=== PATIENT | male | born 1965 | race Two or more races ===

== ENCOUNTER 2024-03-10 06:16 | Emergency (ER) | payer MEDICAID, SELFPAY ==
[2024-03-10 06:16] VITALS: BMI 23.1
[2024-03-10 06:52] VITALS: BP 130/66; PULSE 70; RESP 16; TEMP 37.1; O2SAT 98
--- NOTE | 2024-03-10 07:21 | PD.EDRME ---
Rapid Medical Screening Exam RME Arrival date/time: 03/10/24 06:16 Chief Complaint: GI Bleed Time Seen by Provider: 03/10/24 07:17 Vital signs: Vital Signs Temperature 98.7 F 03/10/24 06:52 Pulse Rate 70 03/10/24 06:52 Respiratory Rate 16 03/10/24 06:52 Blood Pressure 130/66 03/10/24 06:52 Pulse Oximetry (%) 98 03/10/24 06:52 Oxygen Delivery Method Room Air 03/10/24 06:52 RME Narrative: 59-year-old patient presents emergency department with complaint of rectal bleeding. Patient states over the past 4 days he has been having p.o. blood when he defecates. He denies possibility of hemorrhoids he denies tobacco use. He denies abdominal pain.
--- NOTE | 2024-03-10 07:22 | XR_ITS ---
Examination: CT abdomen with intravenous contrast CT pelvis with intravenous contrast 2-D coronal reconstructions 2-D sagittal reconstructions Date and time of exam:March 10, 2024 1426 hrs. Indications: Onset rectal bleeding beginning 4 days ago. CTDI: vol (mGy) 15.9 DLP: (mGycm) 634 Technique: Multiple axial sections of the abdomen and pelvis have been obtained. 64 slice high-resolution scanner used. 3 mm axial sections have been obtained, post intravenous injection 60 cc [id number] 2-D sagittal, coronal reconstructions obtained. Low dose protocols were performed. One or more of the following dose reduction techniques were used; automated exposure control, adjustment of the mA and/or KV according to patient size, use of iterative reconstruction technique. Findings: Severe diffuse fatty infiltration throughout the liver No focal liver lesions No gallstones No splenic or pancreatic mass No renal or ureteral calculi, no hydronephrosis Aorta normal size No bowel obstruction Normal appendix No nonspecific colitis or enteritis Urinary bladder intact Mild prostatomegaly No abnormal contrast extravasation in the gastrointestinal tract Impression: No abnormal contrast extravasation in the gastrointestinal tract Consider nuclear medicine radioisotope gastrointestinal bleeding study follow-up or CTA abdomen pelvis post intravenous contrast follow-up
[2024-03-10 08:02] LABS: Collection Type, Urine Clean Catch
[2024-03-10 08:09] LABS: Bilirubin,Urine Negative (Negative); Blood,Urine Negative (Negative); Clarity,Urine Clear (Clear/Hazy); Color,Urine Lt-Yellow (Lt Yel-Yel); Culture Indicated,Urine Not Indicated; Glucose, Urine Negative (Negative); Ketones,Urine Negative (Negative); Leukocyte Esterase,Urine Negative (Negative); Nitrite,Urine Negative (Negative); Protein,Urine Negative (Neg - Trace); RBC,Urine 2 /hpf (0-3); Specific Gravity,Urine 1.017 (1.001-1.035); Squamous Epithelial Cell,Urine < 1 /hpf (0-5); Urobilinogen,Urine Negative mg/dL (0.0-1.0); WBC,Urine < 1 /hpf (0-5)
[2024-03-10 08:14] LABS: Basophils % (Auto) 0 % (0-2.5); Eosinophils # (Auto) 0.1 Thou/mm3 (0.0-0.5); Eosinophils % (Auto) 2 % (0-10); Hematocrit 35.4 % (41.0-53.0); Hemoglobin 12.1 g/dL (13.5-16.0); Immature Granulocytes % (Auto) 0 % (0-0); Immature Granulocytes Auto 0.01 Thou/mm3 (0.00-0.00); Lymphocytes # (Auto) 1.6 Thou/mm3 (1.0-4.8); Lymphocytes % (Auto) 23 % (10-50); Mean Corpuscular HGB Conc 34.2 g/dl (31.0-37.0); Mean Corpuscular Hemoglobin 28.1 pg (25.0-35.0); Mean Corpuscular Volume 82 fL (80-100); Monocytes # (Auto) 0.7 Thou/mm3 (0.0-0.8); Monocytes % (Auto) 10 % (0-12); Neutrophils # (Auto) 4.4 Thou/mm3 (1.8-7.7); Neutrophils % (Auto) 65 % (37-80); Nucleated Red Blood Cell % 0 /100 WBC (0); Platelet Count 162 Thou/mm3 (140-440); RDW Standard Deviation 42.2 fL (35.1-43.9); White Blood Count 6.9 Thou/mm3 (3.8-10.6)
[2024-03-10 08:16] LABS: Alanine Aminotransferase 156 U/L (10-49); Albumin, Serum 4.6 gm/dL (3.5-5.0); Albumin/Globulin Ratio 1.8 (1.2-2.2); Alkaline Phosphatase 98 U/L (46-116); Anion Gap 7 (7-16); Aspartate Amino Transferase 106 U/L (0-34); BUN/Creatinine Ratio 22 Ratio (12-20); Bilirubin,Total 0.9 mg/dL (0.3-1.2); Blood Urea Nitrogen 22 mg/dL (9-23); Calcium 8.9 mg/dL (8.3-10.6); Calcium (Corrected) 8.9 mg/dL (8.5-10.1); Carbon Dioxide 27.6 mMol/L (20.0-31.0); Chloride 105 mMol/L (98-107); Globulin 2.5 gm/dL (2.3-3.5); Glucose 113 mg/dL (74-106); Lipase 36 U/L (12-53); Osmolality,Calculated 283 (275-295); Potassium 4.3 mMol/L (3.4-5.1); Sodium 140 mMol/L (136-145); Total Protein 7.1 gm/dL (5.7-8.2); eGFR > 60 See Note
--- NOTE | 2024-03-10 15:33 | PRELIM_ITS ---
CT scan of the abdomen and pelvis with intravenous contrast (axial sections with sagittal and coronal reformats) March 10, 2024 1426 hoursClinical History: Rectal bleed.Comparison: None.Findings:The l leno bases are clear.Fatty infiltration of the liver is noted. A right renal cyst is noted. The gallbl adder, pancreas, spleen, left kidney and adrenals are unremarkable.The appendix is within normal limi ts (images [id number]). No evidence of bowel obstruction. No contrast extravasation in the stomach, small or large bowel loops to suggest active gastrointestinal hemorrhage at the time of examination. The urinary bladder is unremarkable. There is no free fluid or free air. The aorta is unremarkable. Mild degenerative changes are identified in the spine. Impression:No evidence of acute intra-abdomin al or pelvic pathology.No contrast extravasation in the stomach, small or large bowel loops to sugges t active gastrointestinal hemorrhage at the time of examination. Report Electronically Signed By: Joseph Wilson 03/10/2024 3:33:26 PM [EST]
--- NOTE | 2024-03-10 17:19 | PD.EDGIBLD ---
ED GI Bleed RME/HPI General Chief complaint: GI Bleed Stated complaint: BLOOD IN STOOL X 4 DAYS Time Seen by Provider: 03/10/24 07:17 Arrival date/time: 03/10/24 06:16 This is a 59-year-old male that comes in with complaints of rectal bleeding that started approximately 3 to 4 days ago. Patient states that when he has a bowel movement it is bright red blood. Patient reports that he feels like he has something outside his anus. Patient denies any other symptoms. Patient denies fever, nausea, vomiting, diarrhea. Patient denies past medical history. RME / HPI RME / HPI Narrative: 59-year-old patient presents emergency department with complaint of rectal bleeding. Patient states over the past 4 days he has been having p.o. blood when he defecates. He denies possibility of hemorrhoids he denies tobacco use. He denies abdominal pain. Related Data Previous Rx's ?Medication ?Instructions ?Recorded gabapentin 300 mg capsule 300 mg PO BID PRN pain #20 caps 12/09/22 ibuprofen 600 mg tablet 600 mg PO TID #20 tabs 04/08/23 hydrocortisone acetate 25 mg 25 mg MN BID #12 ea 03/10/24 rectal suppository (Anusol-HC) Allergies Allergy/AdvReac Type Severity Reaction Status Date / Time No Known Allergies Allergy Verified 03/10/24 06:20 Review of Systems Review of Systems Systems Reviewed: All systems reviewed, normal except as documented Past Medical History Surgical History OTHER SURGICAL HX: Neck surgery (work related) Social History SMOKING STATUS: Never smoker SUBSTANCE USE: does not use ALCOHOL: Never Travel History EBOLA RISK: No ED Exam General General appearance: Present alert and in no apparent distress Head Head exam: Present atraumatic Eye Eye exam: Present normal appearance, PERRL and EOMI ENT ENT exam: Present normal exam, normal oropharynx and mucous membranes moist Neck Neck exam: Present normal inspection, full ROM and trachea midline Chest Chest inspection: Present normal inspection and symmetric chest wall rise Respiratory Respiratory exam: Present normal lung sounds bilaterally Cardiovascular Cardiovascular exam: Present regular rate, normal rhythm and normal heart sounds Abdominal Exam Abdominal exam: Present soft Rectal Exam Rectal exam: Present normal rectal tone, hemorrhoids and other (guiac stool neg) Extremities Exam Extremities exam: Present normal inspection and full ROM Back Exam Back exam: Present normal inspection and full ROM Neurological Exam Neurological exam: Present alert, oriented X3 and CN II-XII intact Psychiatric Psychiatric exam: Present normal affect and normal mood Skin Skin exam: Present warm, dry, intact and normal color Course Quality Measures none Orders Category Date Time Status CT Screening NOW Care 03/10/24 07:[address] abdomen pelvis w con Stat Exams 03/10/24 07:22 Completed CBC Stat Lab 03/10/24 17:54 Completed CBC [CBC] Stat Lab 03/10/24 07:35 Completed CMP [Comprehensive Metabolic Panel] Stat Lab 03/10/24 07:35 Completed Lipase Stat Lab 03/10/24 07:35 Completed Urinalysis, C/S if Indicated Stat Lab 03/10/24 07:59 Completed Vital Signs Vital signs: Vital Signs Temperature 98.7 F 03/10/24 06:52 Pulse Rate 70 03/10/24 06:52 Respiratory Rate 16 03/10/24 06:52 Blood Pressure 130/66 03/10/24 06:52 Pulse Oximetry (%) 98 03/10/24 06:52 Oxygen Delivery Method Room Air 03/10/24 06:52 GI Bleed MDM Narrative MDM Narrative:: Spoke to patient at length. Patient has already been seeing primary provider for this problem. Patient does have hemorrhoid. It does not appear to be bleeding at this time. Upon rectal exam no blood on guaiac. Patient's initial CBC was 12.1 repeat was 11.0. Patient has not had any more bloody stools since he has been here. BNP shows slight elevation in AST and ALT. Urine negative I urged patient to come back to the emergency room if his symptoms change or worsen. Patient already has a follow-up appointment with his primary provider next week. Patient data External records reviewed:: [facility] previous records Clinical information provided by:: none Social determinants that could affect healthcare access:: none Patient has the following chronic illnesses:: none How is presenting disease/condition affected by chronic disease/condition?: no chronic disease Evaluation data The following diagnostics were reviewed and interpreted by me:: lab results and radiology exam(s) Lab and/or radiology exams considered but not ordered:: none Interpretation Summary: see note Medications / Prescriptions Medications or Prescriptions considered but not ordered:: none Medication administrations:: none Consultations Consultation(s) initiated? (list below): No Diagnosis GI bleed differential diagnosis: hemorrhoids, infectious diarrhea, Upper gastrointestinal hemorrhage, Lower gastrointestinal hemorrhage and anal fissure Most likely diagnosis given after review of the tests above:: hemorrhoids Admission Indicated Admission indicated?: not indicated Admission Request Was there a request for admission?: No Disposition Plan Disposition Plan: Discharge Discharge Attestation Discharge Attestation: The patient and all family members were given an opportunity to ask questions and understood the discharge instructions. Discharge instructions specifically effects, indications for sooner follow up or return to the emergency department, and the expected course of current diagnosis. Patient condition: Stable Discharge Plan Plan Patient Disposition: HOME (Self Care) Patient condition on transfer: Stable Prescriptions/Referrals Prescriptions/Med Rec: New hydrocortisone acetate [Anusol-HC] 25 mg suppository 25 mg MN BID Qty: 12 0RF No Action ibuprofen 600 mg tablet 600 mg PO TID Qty: 20 0RF gabapentin 300 mg capsule 300 mg PO BID PRN (Reason: pain) Qty: 20 0RF Referrals: Oliver Rolle MD [Primary Care Provider] - In 1 week Problem List Clinical Impression: Acute hemorrhoid, Bloody stool Patient/Caregiver Discharge Instructions Discharge Activity: activity as tolerated Education Materials: ED Hemorrhoids Additional Instructions: Use suppositories as needed. please follow-up with primary provider in 1 to 2 days. Come back to the emergency room symptoms change or worsen. Print Language: Turkmen Stand Alone Forms: [employer] Award Info., Patient Portal Info Letter KARINA/MELISSA Supervising Physician KARINA/MELISSA Supervising Physician: nick
[2024-03-10 17:38] VITALS: BP 132/76; PULSE 70; RESP 20; TEMP 36.8; O2SAT 100
[2024-03-10 18:13] LABS: Basophils % (Auto) 0 % (0-2.5); Eosinophils # (Auto) 0.1 Thou/mm3 (0.0-0.5); Eosinophils % (Auto) 3 % (0-10); Hematocrit 32.8 % (41.0-53.0); Immature Granulocytes % (Auto) 0 % (0-0); Lymphocytes # (Auto) 1.7 Thou/mm3 (1.0-4.8); Lymphocytes % (Auto) 35 % (10-50); Mean Corpuscular HGB Conc 33.5 g/dl (31.0-37.0); Mean Corpuscular Hemoglobin 27.7 pg (25.0-35.0); Mean Corpuscular Volume 83 fL (80-100); Monocytes # (Auto) 0.5 Thou/mm3 (0.0-0.8); Monocytes % (Auto) 10 % (0-12); Neutrophils # (Auto) 2.5 Thou/mm3 (1.8-7.7); Neutrophils % (Auto) 52 % (37-80); Nucleated Red Blood Cell % 0 /100 WBC (0); Platelet Count 135 Thou/mm3 (140-440); RDW Standard Deviation 42.5 fL (35.1-43.9); Red Blood Count 3.97 Miln/mm3 (4.50-5.90); White Blood Count 4.8 Thou/mm3 (3.8-10.6)
[2024-03-10 19:06] VITALS: BP 128/78; PULSE 70; RESP 17; TEMP 36.8; O2SAT 98
== END 2024-03-10 19:19 | disposition home or self-care (01) ==
PROVIDERS: Nurse Practitioner Family; Physician Assistant; Emergency Provider Emergency Medicine; PCP Obstetrics & Gynecology
DX: K64.9 Unspecified hemorrhoids (principal)
CPT/HCPCS: 36415; 74177; 80053; 81001; 83690; 85025; 99285; A4649; Q9967

== ENCOUNTER 2024-04-17 09:30 | Day surgery (SDC) | payer MEDICAID, SELFPAY ==
[2024-04-17] VITALS (13 sets, daily range): BP systolic 89–149; BP diastolic 58–98; PULSE 59–86; RESP 14–20; TEMP 36.6–36.7; O2SAT 93–100; BMI 23.2
[2024-04-17] MEDS: SODIUM CHLORIDE 0.9% 500 ML 500 ML 20 ML IV (11:09)
[2024-04-17] MEDS: BENZOCAINE 20% (Hurricaine) SPRAY 1 DOSE TOP (11:13)
[2024-04-17] MEDS: DiphenhydrAMINE INJ 50 MG/ML VIAL 25 MG IV (11:15)
[2024-04-17] MEDS: fentaNYL CIT INJ 50 mCg/ML AMP 2ML (ASD USE ONLY) IV (11:21)
[2024-04-17] MEDS: MIDAZOLAM INJ 1 MG/ML VIAL 2 ML (ASD USE ONLY) 2 MG IV (11:21)
--- NOTE | 2024-04-17 13:41 | SUR.PHASEII ---
1215 Pt remains drowsy. Via Uzbek speaker-pt denies pain or N/V-then drifts back to sleep. IV fluids cont.
--- NOTE | 2024-04-17 13:49 | SUR.PHASEII ---
1302 Pt more awake and alert. Denies pain, difficulty swallowing or N/V. Abd remains soft. Pt marah po fluids. 1320 Pt assessment unchanged. No complaints. Amb with steady gait. Able to dress self. Pt and friend given dc instructions. Both state understanding. Pt meets dc criteria-to home.
== END 2024-04-17 13:02 | disposition home or self-care (01) ==
PROVIDERS: PCP Obstetrics & Gynecology; Referring Provider Internal Medicine Gastroenterology; Visit Provider Internal Medicine Gastroenterology
PROC: 0DBE8ZX Excision of Large Intestine, Via Natural or Artificial Opening Endoscopic, Diagnostic (ICD-10-PCS; CPT 45380; principal; 2024-04-17 10:45)
PROC: (CPT 43239; 2024-04-17 10:45)
DX: K64.8 Other hemorrhoids (principal); K29.50 Unspecified chronic gastritis without bleeding; K31.89 Other diseases of stomach and duodenum; B96.81 Helicobacter pylori [H. pylori] as the cause of diseases classified elsewhere; K63.5 Polyp of colon; I10 Essential (primary) hypertension; E11.9 Type 2 diabetes mellitus without complications; E78.00 Pure hypercholesterolemia, unspecified
CPT/HCPCS: 45380; A4217; A4649; J1200; J2250; J3010; J7040; A9270

== ENCOUNTER 2024-12-29 03:59 | Emergency (ER) | payer MEDICAID, SELFPAY ==
[2024-12-29 04:02] VITALS: BP 138/89; PULSE 60; RESP 20; TEMP 36.7; O2SAT 98; BMI 22.4
--- NOTE | 2024-12-29 04:35 | PD.EDEXREM ---
ED Extremity Problem RME/HPI General Chief complaint: Extremity Injury, Lower Stated complaint: L KNEE PAIN Time Seen by Provider: 12/29/24 04:31 Arrival date/time: 12/29/24 03:59 59M with no significant PMH presents to ED with 2 week of L knee pain w/o fall/trauma/skin penetration. Patient works in the [employer]. Ibuprofen helps. Patient had XR done outpatient but doesn't know results. Patient has not had surgery there before. Limitations: no limitations Related Data Home Medications ?Medication ?Instructions ?Recorded ?Confirmed No Known Home Medications 04/17/24 04/17/24 Allergies Allergy/AdvReac Type Severity Reaction Status Date / Time No Known Allergies Allergy Verified 12/29/24 04:07 Review of Systems Review of Systems Systems Reviewed: All systems reviewed, normal except as documented Musculoskeletal Musculoskeletal: Reports as per HPI and Reports arthralgias Past Medical History Past Medical History NEUROLOGIC: Negative Neurological Disorders or Seizures CARDIAC: Negative Cardiac Disorders or Congestive Heart Failure RESPIRATORY: Negative Chronic Obstructive Pulmonary Disease (COPD) or Asthma GASTROINTESTINAL: Positive Gastrointestinal Disorders (RECTAL BLEEDING) and Hemorrhoids GENITOURINARY: Negative Genitourinary Disorders or Renal Disease MUSCULOSKELETAL: Positive Musculoskeletal Disorders and Arthritis ENDOCRINE: Negative Endocrine Disorders, Diabetes Mellitus Type 1 or Diabetes Mellitus Type 2 HEMATOLOGIC: Negative Blood Disorders or Sickle Cell Disease PSYCHO/SOCIAL: Positive Anxiety OTHER HISTORY: Positive Chicken Pox, Measles and Mumps; Negative Autoimmune Disease, Blood Transfusions, Anesthesia Reactions or Cancer Social History SMOKING STATUS: Never smoker SUBSTANCE USE: does not use ED Exam General Limitations: Present no limitations General appearance: Present alert and in no apparent distress Head Head exam: Present atraumatic Neck Neck exam: Present normal inspection, full ROM and trachea midline Chest Chest inspection: Present normal inspection and symmetric chest wall rise Extremities Exam Extremities exam: Present full ROM Expanded Lower Extremity Exam Knee exam: Present full ROM (L mild), tenderness and swelling Neurological Exam Neurological exam: Present alert and oriented X3 Psychiatric Psychiatric exam: Present normal affect and normal mood Skin Skin exam: Present warm, dry, intact and normal color Course Quality Measures none Orders Category Date Time Status Dexamethasone Inj [Decadron Inj] Med 12/29/24 04:32 Discontinued 10 mg PO X1 ONE HYDROcodone*/APAP 5/325 [[place] 5/325] Med 12/29/24 04:32 Discontinued 1 tab PO X1 ONE Vital Signs Vital signs: Vital Signs Temperature 98.0 F 12/29/24 04:02 Pulse Rate 60 12/29/24 04:02 Respiratory Rate 20 12/29/24 04:02 Blood Pressure 138/89 H 12/29/24 04:02 Pulse Oximetry (%) 98 12/29/24 04:02 Oxygen Delivery Method Room Air 12/29/24 04:02 O2 at 98% on RA and WNLs Extremity Problem MDM Narrative MDM Narrative:: 59M with no significant PMH presents to ED with 2 week of L knee pain w/o fall/trauma/skin penetration. Patient works in the [employer]. Ibuprofen helps. Patient had XR done outpatient but doesn't know results. Patient has not had surgery there before. Physical exam reveals mild L knee swelling and tenderness. No redness or warmth. Patient has knee brace there. Gait and ROM normal. Patient is afebrile, calm, and alert. Meds and debt management counselor given. Patient data External records reviewed:: [facility] previous records Clinical information provided by:: patient Social determinants that could affect healthcare access:: none Patient has the following chronic illnesses:: none How is presenting disease/condition affected by chronic disease/condition?: no chronic disease Evaluation data The following diagnostics were reviewed and interpreted by me:: other (specify) (none) Lab and/or radiology exams considered but not ordered:: not ordered Interpretation Summary: n/a Medications / Prescriptions Medications or Prescriptions considered but not ordered:: ordered Medication administrations:: Medication Administration History Discontinued Medications Hydrocodone Bitart/Acetaminophen (Hydrocodone/Apap 5/325 Tablet) 1 tab PO X1 ONE Stop: 12/29/24 04:33 Dexamethasone Sodium Phosphate (Dexamethasone Sod Phos Inj 10 Mg/Ml Vial) 10 mg PO X1 ONE Stop: 12/29/24 04:33 above Consultations Consultation(s) initiated? (list below): No Diagnosis Extremity Problem Differential Diagnosis: herpes zoster, gout, cellulitis, superficial thrombophlebitis, deep venous thrombosis of upper extremity, lower extremity edema, deep vein thrombosis of lower extremity and other (knee pain) Most likely diagnosis given after review of the tests above:: knee pain Admission Indicated Admission indicated?: not indicated Admission Request Was there a request for admission?: No Disposition Plan Disposition Plan: Discharge Discharge Attestation Discharge Attestation: The patient and all family members were given an opportunity to ask questions and understood the discharge instructions. Discharge instructions specifically effects, indications for sooner follow up or return to the emergency department, and the expected course of current diagnosis. Patient condition: Stable Discharge Plan Plan Patient Disposition: HOME (Self Care) Discharge Disposition comment: Stable Prescriptions/Referrals Prescriptions/Med Rec: No Action No Known Home Medications Problem List Clinical Impression: Knee pain Patient/Caregiver Discharge Instructions Education Materials: ED Knee Pain of Uncertain Cause, ED Knee Effusion Additional Instructions: Please follow-up with PCP within 24-48 hours and return immediately if symptoms worsen. If problem persists, recommend outpatient PT and/or MRI follow-up. In the meantime, rest, use ice/heat, and/or compression. Print Language: Trinidadian Stand Alone Forms: Patient Portal Info Letter PA/MELISSA Supervising Physician KARINA/MELISSA Supervising Physician: Dr. Baugh
[2024-12-29] MEDS: DEXAMETHASONE SOD PHOS INJ 10 MG/ML VIAL PO (04:43)
[2024-12-29] MEDS: HYDROcodone/APAP 5/325 TABLET 1 TAB PO (04:44)
== END 2024-12-29 05:26 | disposition home or self-care (01) ==
LOC: SERX 05:00
PROVIDERS: Emergency Provider Emergency Medicine
DX: M25.562 Pain in left knee (principal)
CPT/HCPCS: 29505; 99281; J1100; A9270

== ENCOUNTER 2025-02-26 09:57 | Outpatient (AMB) | payer MEDICAID, SELFPAY ==
[2025-02-26 10:24] VITALS: BP 128/88; PULSE 69; RESP 18; TEMP 36.2; O2SAT 97; BMI 23.7
--- NOTE | 2025-02-26 10:24 | ORTHONT_ITS ---
Vital signs 02/26/25 10:24 Height 1.88 m Height Method Stated Weight 83.943 kg Weight Measurement Method Standing Scale BMI 23.7 BP 128/88 H Blood Pressure Source Automatic Cuff Blood Pressure Location Left Upper Arm Position Sitting Respiration 18 Pulse 69 Pulse Source Monitor Temp 97.2 F Temp Source Temporal Artery Scan Pulse Oximetry (%) 97 Oxygen Delivery Method Room Air Med/Allergies Allergies & Medications Allergies No Known Allergies Allergy (Verified 02/26/25 10:32) Medication Reconciliation meloxicam 7.5 mg tablet 7.5 mg PO QDAY #45 tabs 02/26/25 [Rx Confirmed 02/26/25] Exam Exam Patient is in no acute distress and is cooperative with the examination today. Breathing is nonlabored. In no respiratory distress. Bilateral extremities were evaluated and demonstrates sensation intact to light touch. Palpable pedal pulses are present. No significant edema is present. Bilateral hips were examined. The patient has no pain with log roll of the hips. Internal rotation to 30 degrees and external rotation to 30 degrees is painless. Negative FADIR. The left knee was examined. The left knee is in varus alignment. Range of motion from 0-115 degrees. Knee is stable to varus and valgus as well as AP translation with <5mm. Patient has a negative McMurrays. There is no pain with patellofemoral compression and no crepitus noted. The knee is tender to palpation medially. The right knee was also examined. The right knee is in varus alignment. Range of motion from 0-120 degrees. Knee is stable to varus and valgus as well as AP translation with <5mm. Patient has a negative McMurrays. There is no pain with patellofemoral compression and no crepitus noted. The knee is tender to palpation medially. Patient has no imaging to review Assessment and Plan Problem List (1) Bilateral knee pain: Status: Acute Plan: ASSESSMENT AND PLAN 1. Bilateral knee pain: Experiencing bilateral knee pain for the past 4 months, with the left knee being more affected. No physical therapy has been undertaken. One injection was received, providing only 2 days of relief. Ibuprofen has not been effective in managing the pain. X-rays of both knees will be ordered to further evaluate the condition. A prescription for meloxicam will be provided to help manage the pain and inflammation. Follow-up: Next available appointment. 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 ([id number]) [place] Intake Visit Data Collection New Patient or Established: New Patient (never been to [facility]) Reason for Visit:: OA BL KNEE Mixing Place Supervisor Required: Yes PCP or OBGYN visit in last 3 months: Yes Hx Now: No Do You Feel Safe at Home: Yes Authorities Contacted: N/A Questionairres Past Medical History Past Medical History Have you ever been diagnosed with any of the following: Neurological Problems Seizures: No Cardiology Problems Congestive Heart Failure: No Respiratory Problems Chronic Obstructive Pulmonary Disease (COPD): No Asthma: No Smoking: No Smoking Cessation Counseling: No Smoking Exposure: No Stomache/Intestinal Problems Hemorrhoids: Yes Genital/Urinary Problems Renal Disease: No Musculoskeletal Problems Arthritis: Yes Endocrine Problems Diabetes Mellitus Type 1: No Diabetes Mellitus Type 2: No Blood Problems Sickle Cell Disease: No Psychologic Problems Anxiety: Yes Other Problems Blood Transfusions: No Anesthesia Reactions: No Chicken Pox: Yes Measles: Yes Mumps: Yes Cancer: No Subjective Visit Visit for: new patient and knee (BILATERAL) Immunization / Flu Flu Vaccine in the Last 12 Months: Yes Flu Vaccine Exclusion Criteria: Allergy to Eggs History of Present Illness Chief complaint: bilateral knee pain HISTORY OF PRESENT ILLNESS ILc, have obtained verbal consent from the patient, to be recorded during this encounter which may include, but not limited to, medical history, examination, treatment plans, and relevant health information.? Patient was informed that recording will be read and reviewed by myself before inclusion in the medical chart. The patient is a 60-year-old male who presents for evaluation of bilateral knee pain. 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 He has been experiencing bilateral knee pain, with the left knee being more affected, for approximately 4 months. He reports swelling in his knees and a popping sensation when he fully flexes them. He has not undergone any physical therapy. He has attempted to manage the pain with ibuprofen, but it has not been effective. He received one injection, which provided only 2 days of relief. Pain Pain level (0-10): 10 Pain location: inside (medial) and anterior Pain quality: dull, aching and other (specify) (SWELLING) Pain timing: night, increases with activity and stairs Associated signs & symptoms: weakness and stiffness Review of Systems Review of Systems: All systems negative unless otherwise noted in HPI.
--- NOTE | 2025-02-26 10:24 | XR_ITS ---
EXAMINATION: Bilateral knees 2 views Right lateral knee left lateral knee 2 views Bilateral [place] single view TECHNIQUE: Bilateral axial knees standing single view, bilateral PA knees standing flexion single view Right lateral knee left lateral knee standing 2 views Bilateral Axuni single view total 5 views Date and time: February 26, 2025, 1040 hours INDICATION: Left knee pain for months. FINDINGS: Moderate to advanced narrowing medial joint spaces bilaterally Moderate osteoarthritis lateral joint spaces Moderate to advanced osteoarthritis patellofemoral joints No fractures IMPRESSION: Significant osteoarthritis as above
== END 2025-02-26 10:28 | disposition home or self-care (01) ==
PROVIDERS: PCP Family Medicine; Referring Provider Family Medicine; Supervising Provider Orthopaedic Surgery Adult Reconstructive Orthopaedic Surgery; Visit Provider Orthopaedic Surgery Adult Reconstructive Orthopaedic Surgery
DX: M25.562 Pain in left knee (principal); M25.561 Pain in right knee; M17.0 Bilateral primary osteoarthritis of knee
CPT/HCPCS: 73564; 99204; G0463